=== PATIENT | female | born 1955 | race Caucasian/White ===

== ENCOUNTER → 2017-08-07 | Outpatient (CLI) | payer BC ==
[~2017-08-07] MED LIST: ALBUAER2 INH; ATV5X PO; FLUT115A INH; LPT40 PO; LSN5 PO; METF-384 PO; ZLF/100 PO
--- NOTE | 2017-08-07 14:14 | MAMMOGRAPHY REPORT ---
BILATERAL DIGITAL SCREENING MAMMOGRAM TOMOSYNTHESIS WITH CAD: 08/07/2017 CLINICAL HISTORY: Routine screening. Patient has no complaints. TECHNIQUE: Breast tomosynthesis in addition to standard 2D mammography was performed. Current study was also evaluated with a Computer Aided Detection (CAD) system. COMPARISON: Comparison is made to exams dated: 08/04/2016 mammogram, 07/15/2015 mammogram, 07/14/2014 m ammogram, 07/08/2013 mammogram, 07/05/2011 mammogram, and 07/01/2010 mammogram - [facility] er. BREAST COMPOSITION: The tissue of both breasts is heterogeneously dense, which may obscure small mas ses. FINDINGS: There is a focal area of architectural distortion in the middle to posterior left breast, along the posterior nipple line on the CC view, thought to project superiorly on the MLO view, for wh ich additional spot compression to the symphysis views and possible ultrasound are recommended. Anot her questionable area of architectural distortion is seen in the middle one third of the right breast , along the posterior nipple line on the CC view, warranting additional spot compression tomosynthesi s views and possible ultrasound. There are stable benign-appearing microcalcifications scattered bilaterally. No other suspicious mass , architectural distortion or cluster of microcalcifications is seen. IMPRESSION: ACR BI-RADS CATEGORY 0: INCOMPLETE EVALUATION: NEED ADDITIONAL IMAGING EVALUATION The focal area of architectural distortion in the middle one third of the left breast, along the pos terior nipple line, and questionable area of architectural distortion in the right breast need additi onal imaging evaluation. The patient will be called to schedule an appointment. Approximately 10% of breast cancers are not detected with mammography. A negative mammographic report should not delay biopsy if a clinically suggestive mass is present. Brittney Rasmussen M.D. ay/:08/07/2017 09:40:41 [employer] Electric[employer] Helper: Smitha GOLDMAN(Malgorzata)(Jeannie), [facility] letter sent: Addl Imaging 0 BI-RADS Code: ACR BI-RADS Category 0: Incomplete Evaluation: Need Additional Imaging Evaluation
== END | disposition home or self-care (01) ==
LOC: C.MAMM 08:30
PROVIDERS: ATTEND Physician Assistant
DX: Z12.31 Encounter for screening mammogram for malignant neoplasm of breast (principal); R92.8 Other abnormal and inconclusive findings on diagnostic imaging of breast

== ENCOUNTER → 2017-08-11 | Outpatient (CLI) | payer BC ==
--- NOTE | 2017-08-11 14:13 | MAMMOGRAPHY REPORT ---
BILATERAL DIGITAL DIAGNOSTIC MAMMOGRAM TOMOSYNTHESIS AND TARGETED LEFT ULTRASOUND: 08/11/2017 CLINICAL HISTORY: Callback from screening mammogram for questionable architectural distortion bilater ally. TECHNIQUE: Breast tomosynthesis in addition to standard 2D mammography was performed. Spot compress ion bilateral CC and MLO 2-D and tomosynthesis images were obtained. COMPARISON: Comparison is made to exams dated: 08/07/2017 mammogram, 08/04/2016 mammogram, 07/15/2015 m ammogram, 07/14/2014 mammogram, 07/08/2013 mammogram, and 07/05/2012 mammogram - [facility]. BREAST COMPOSITION: The tissue of both breasts is heterogeneously dense, which may obscure small mas ses. FINDINGS: The previously described possible area of architectural distortion in the left breast luigi g the posterior nipple line on the cc view does not persist on the additional spot compression views. An asymmetry seen within this region appears similar to multiple prior exams including the 2009 exa m. On the spot compression cc view there is an ovoid 8 mm nodular asymmetry which localizes to the l eft 6 to 7:00 breast middle depth. The asymmetry is likely stable compared to multiple prior exams i ncluding the 2008 exam although is better visualized on the current tomosynthesis images, therefore u ltrasound was performed. The area of questionable architectural distortion within the right breast a long the posterior nipple line on the cc view does not persist on the additional compression views, a nd has the appearance of normal fibroglandular tissue. No suspicious mass or architectural distortio n is noted on the additional images. Targeted ultrasound was performed of the left 6 to 7:00 breast in the region of the nodular asymmetry . The breast tissue is heterogeneous on ultrasound which reduces the sensitivity of the exam. Howev er, no suspicious mass or other suspicious sonographic abnormality is seen in this region. Given pari t the asymmetry appears stable mammographically dating back to the 2009 exam, it is considered benign . IMPRESSION: ACR BI-RADS CATEGORY 2: BENIGN, TARGETED ULTRASOUND ACR BI-RADS CATEGORY 2: BENIGN 1. Bilateral areas of questionable architectural distortion do not persist on the additional views. Findings are benign and compatible with normal fibroglandular tissue. 2. Incidental 8 mm asymmetry in the left breast on the additional views, which is stable mammographi katherine dating back to the 2009 exam and no suspicious corresponding sonographic abnormality is evident . Findings are benign given the long-term stability. There is no mammographic or targeted sonographic evidence of malignancy. A 1 year screening mammogram is recommended. The patient has been verbally notified of the results. Approximately 10% of breast cancers are not detected with mammography. A negative mammographic report should not delay biopsy if a clinically suggestive mass is present. Anitra Emmanuel M.D. ah/:08/11/2017 11:09:13 [employer] Teacher: Barbara Andrew, [facility] letter sent: Normal 1/2 BI-RADS Code: ACR BI-RADS Category 2: Benign Ultrasound BI-RADS: ACR BI-RADS Category 2: Benign
== END | disposition home or self-care (01) ==
LOC: C.MAMM 10:21
PROVIDERS: ATTEND Physician Assistant
DX: N64.89 Other specified disorders of breast (principal)